=== PATIENT | female | born 2005 | race Two or more races ===

== ENCOUNTER → 2024-05-06 | Outpatient (CLI) | payer BC, MEDICAID, SELFPAY ==
[2024-05-06 15:08] LABS: HCG Titer if Positive Negative
== END | disposition home or self-care (01) ==
PROVIDERS: PCP Family Medicine; Referring Provider Nurse Practitioner Family; Visit Provider Nurse Practitioner Family
DX: Z30.42 Encounter for surveillance of injectable contraceptive (principal)
CPT/HCPCS: 36415; 84703

== ENCOUNTER → 2024-05-15 | Outpatient (CLI) | payer BC, SELFPAY ==
[2024-05-15 18:11] LABS: HCG,Qualitative Serum Negative
== END | disposition home or self-care (01) ==
LOC: COPL 16:29
PROVIDERS: PCP Nurse Practitioner Family; Referring Provider Nurse Practitioner Family; Visit Provider Nurse Practitioner Family
DX: Z30.42 Encounter for surveillance of injectable contraceptive (principal)
CPT/HCPCS: 36415; 84703